=== PATIENT | female | born 1930 | race Caucasian/White ===

== ENCOUNTER 2016-12-01 23:56 | Inpatient (IN) | payer MEDICAID ==
[~2016-12-01] VITALS: Ht 160 cm; Wt 69.6 kg
[2016-12-02] VITALS (14 sets, daily range): BP systolic 113–144; BP diastolic 50–77; Ht 160 cm; Wt 69.6 kg
[2016-12-02 02:23] LABS: BASOPHILS 0 % (0.0-2.0); EOSINOPHILS 0.2 % (0-7); HEMATOCRIT 32.8 % (36.0-48.0); HEMOGLOBIN 10.2 g/dL (12-16); IMMATURE GRANULOCYTES 0.2 % (0-5); LYMPHOCYTES 8.8 % (15-50); MCH 29.7 pg (26.0-34.0); MCHC 31.1 g/dL (31.0-37.0); MCV 95.3 fL (80.0-100.0); MEAN PLATELET VOLUME 9.1 fL (7.4-10.4); MONOCYTES 5.7 % (2-11); NEUTROPHILS 85.1 % (40-80); PLATELET COUNT 212 10x3/uL (130-400); RBC 3.44 10x6/uL (4.00-5.40); RDW 13.5 % (11.5-14.5); WBC 6.5 10x3/uL (4.8-10.8)
[2016-12-02 02:26] LABS: INR 1.16 (0.85-1.17); PROTIME 14.6 SECONDS (11.6-15.0)
[2016-12-02 02:30] LABS: ANION GAP 10.2 mmol/L (8-16); BILIRUBIN - TOTAL 0.33 mg/dL (0.2-1.3); CALCIUM 8.5 mg/dL (8.5-10.1); CARBON DIOXIDE 31.2 mmol/L (21.0-32.0); POTASSIUM - SERUM 3.4 mmol/L (3.5-5.1); PROTEIN - SERUM 6.3 g/dL (6.4-8.2)
[2016-12-02 02:42] LABS: MAGNESIUM - SERUM 1.8 mg/dL (1.8-2.4); TROPONIN-I 0.023 ng/mL (0.000-0.060)
[2016-12-02 04:49] LABS: APPEARANCE CLEAR (CLEAR); BILIRUBIN NEGATIVE (NEGATIVE); COLOR YELLOW (YELLOW); GLUCOSE NEGATIVE (NEGATIVE); KETONE NEGATIVE (NEGATIVE); LEUKOCYTE ESTERASE NEGATIVE (NEGATIVE); NITRITE NEGATIVE (NEGATIVE); PH 5.5 (5.0-6.0); PROTEIN NEGATIVE (NEGATIVE); UROBILINOGEN NORMAL (NORMAL)
--- NOTE | 2016-12-02 05:00 | NUR ---
PATIENT RECEIVED TO ROOM FROM ER VIA STRETCHER WITH FAMILY AND HOSPITAL STAFF. PATIENT IS AWAKE BUT SEDATED FROM PAIN MEDICATION. RR EVEN AND UNLABORED. O2 @ 4L VIA NC. 0 S/S OF DISTRESS. DENIES PAIN AT THIS TIME. IV TO RIGHT AC PATENT WITH NO REDNESS OR SWELLING. INITIATED BUCKS TRACTION 5LBS PER ORDER. NO DIET ORDERED BUT WILL KEEP PATIENT NPO IN CASE OF PROCEDURE. SONS AT BEDSIDE. B/A. SRX2. BED LOW. CALL LIGHT WITHIN REACH.
[2016-12-02] MEDS ORDERED: DUREZOL5 ML RIGHT EYE (08:30)
[2016-12-02] MEDS ORDERED: FLUTICASONE PRO16 GM NASAL (08:31)
[2016-12-02] MEDS ORDERED: NEVANAC3 ML RIGHT EYE (08:31)
[2016-12-02] MEDS ORDERED: SINGULAIR10 MG PO (08:33)
[2016-12-02] MEDS ORDERED: IPRAT-ALBUT 0.5-3 ML UPD (08:33)
[2016-12-02] MEDS ORDERED: PAROXETINE HCL10 MG PO (08:34)
[2016-12-02] MEDS ORDERED: OMEPRAZOLE20 M1 PO (08:34)
[2016-12-02] MEDS ORDERED: PROPAFENONE HC150 MG PO (08:35)
[2016-12-02] MEDS ORDERED: SYMBICORT 16010.2 GM INH (08:35)
[2016-12-02] MEDS ORDERED: PROVENTIL/2.5 MG/3 M INH (08:35)
[2016-12-02] MEDS ORDERED: HYDROCODON-ACE1 EAC7 PO (08:36)
[2016-12-02] MEDS ORDERED: ATIVAN0.5 MG PO (08:37)
[2016-12-02] MEDS ORDERED: IBUPROFEN400 MG PO (08:37)
[2016-12-02] MEDS ORDERED: MILK OF MAGNESI30 ML PO (08:38)
[2016-12-02] MEDS ORDERED: GAS-X80 MG PO (08:38)
[2016-12-02] MEDS ORDERED: SALONPAS (08:39)
[2016-12-02] MEDS ORDERED: [UNRECOGNIZED DRUG - CODE] PO (08:40)
--- NOTE | 2016-12-02 09:04 | NUR ---
WRAPPED PATIENTS IV, SHE WAS PULLING AT THE TUBING.
--- NOTE | 2016-12-02 10:00 | NUR ---
PRE OPERATIVE MEDICATIONS GIVEN AT THIS TIME WITH A SMALL SIP OF WATER. FAMILY AT BEDSIDE. PT VOICES PAIN UPON MOVEMENT. CALL LIGHT IN REACH, WILL CONTINUE WITH PLAN OF CARE.
--- NOTE | 2016-12-02 11:00 | NUR ---
OXYGEN INCREASED TO 6L VIA NC. TAKEN TO SURGERY AT THIS TIME. FAMILY WAITING IN PT'S ROOM. WILL MONITOR PT WHEN SHE RETURNS.
--- NOTE | 2016-12-02 13:13 | NUR ---
3021-0443: ANESTHESIA PUTTING IN SPINAL BLOCK. 8981-0395: ALLOWING 3 MIN FOR THE SPINAL BLOCK TO SET UP
--- NOTE | 2016-12-02 13:43 | NUR ---
THE PATIENT HAD A SPINAL FOR HER PROCEEDURE AND COMPLAINED OF BLURRY VISION UPON AWAKENING IN RR. ANESTHESIA NOTIFIED AND IS AT BEDSIDE ASSESING THE PATIENT.
--- NOTE | 2016-12-02 13:44 | NUR ---
ANDESTHESIA ALSO ADVISED THE PATIENTS PRE OP SAT WAS IN THE 80'S
--- NOTE | 2016-12-02 13:50 | NUR ---
DR ARRIOLA NOW HERE SPEAKING WITH THE PATIENT ABOUT HER VISION
--- NOTE | 2016-12-02 14:08 | NUR ---
DR WAGNER ADVISED THE PATIENTS FAMILY HAD REPORTED THAT THE PATIENT RECENTLY HAD EYE SURGERY.
--- NOTE | 2016-12-02 14:20 | NUR ---
BACK TO ROOM 2212 AT THIS TIME FROM RECOVERY. MENTAL STATUS REMAINS THE SAME BEFORE PROCEDURE. ORIENTED TO SELF ONLY. PT C/O BLURRED VISION IN RIGHT EYE, WHICH FAMILY SAYS IS BASELINE FOR PT. OXYGEN ON 6L VIA NC WITH SATURATIONS 95%. VITAL SIGNS WNL. FAMILY AT BEDSIDE. SCD'S ON AND IN WORKING ORDER. INCENTIVE SPIROMETER IN USE WITH HELP OF FAMILY HOLDING APARATUS. ICE PACK TO LEFT HIP WITH DRESSING C/D/I. RANDALL PATENT AND DRAINING TO GRAVITY, BED ALARM ON. CALL LIGHT IN FAMILIES REACH. WILL CONTINUE WITH PLAN OF CARE.
--- NOTE | 2016-12-02 15:30 | NUR ---
SCHEDULED RHYTHMOL ADMINISTERED AT THIS TIME. RANDALL CARE PROVIDED WITH SOAP AND WATER. FAMILY REMAINS AT BEDSIDE. WILL CONTINUE WITH PLAN OF CARE.
--- NOTE | 2016-12-02 17:00 | NUR ---
PT POSITIONED ON RIGHT SIDE AT THIS TIME. FAMILY REMAINS IN ROOM. CALL LIGHT IN REACH, WILL CONTINUE WITH PLAN OF CARE.
[2016-12-03] VITALS (7 sets, daily range): BP systolic 126–160; BP diastolic 70–99
[2016-12-03 06:23] LABS: BASOPHILS 0 % (0.0-2.0); EOSINOPHILS 0.8 % (0-7); HEMATOCRIT 31.3 % (36.0-48.0); HEMOGLOBIN 9.7 g/dL (12-16); IMMATURE GRANULOCYTES 0.2 % (0-5); LYMPHOCYTES 8.2 % (15-50); MCH 29.8 pg (26.0-34.0); MEAN PLATELET VOLUME 9.3 fL (7.4-10.4); MONOCYTES 9.6 % (2-11); NEUTROPHILS 81.2 % (40-80); PLATELET COUNT 180 10x3/uL (130-400); RBC 3.26 10x6/uL (4.00-5.40); RDW 13.5 % (11.5-14.5)
[2016-12-03 06:43] LABS: ALBUMIN 2.5 g/dL (3.4-5.0); BILIRUBIN - TOTAL 0.68 mg/dL (0.2-1.3); CALCIUM 8.2 mg/dL (8.5-10.1); CARBON DIOXIDE 33.2 mmol/L (21.0-32.0); MAGNESIUM - SERUM 1.5 mg/dL (1.8-2.4); PHOSPHOROUS 1.8 mg/dL (2.5-4.9); PROTEIN - SERUM 6.1 g/dL (6.4-8.2)
[2016-12-03 06:47] LABS: ANION GAP 6.7 mmol/L (8-16); POTASSIUM - SERUM 2.9 mmol/L (3.5-5.1)
--- NOTE | 2016-12-03 12:30 | NUR ---
PATIENT IN BED WITH EYES CLOSED RESTING QUIETLY AT THIS TIME. FAMILY AT BEDSIDE. NO COMPLAINTS OR SIGNS OF DISTRESS. CALL LIGHT WITHIN REACH.
--- NOTE | 2016-12-03 20:00 | NUR ---
RECEIVED PT SLEEPING. NO SIGNS OF DISTRESS. FAMILY AT BEDSIDE. DRESSING TO LEFT HIP CLEAN, DRY, INTACT. TELEMETRY ON. FAMILY DENIES NEEDS AT THIS TIME.
--- NOTE | 2016-12-03 22:39 | NUR ---
NIGHT MEDS PASSED. PT SLEEPY. PT NOT TAKING SIPS OF WATER OUT OF STRAW WELL AT THIS TIME. MEDS GIVEN WITH APPLESAUCE.
--- NOTE | 2016-12-03 23:17 | NUR ---
TIMBER TREATING TANK OPERATOR CALLED. PT HEART RATE IN 170S. WITHIN 5 MINUTES, IT WAS DOWN TO 124. THEN, BACK TO 170S. DR. MORA PAGED.
--- NOTE | 2016-12-04 00:06 | NUR ---
ADMINISTERED CARDIZEM 10MG IVP SLOWLY OVER 2 MINS ORDERED. PUSHED VIA L.FA PIV DRSG CDI AND SWAB CAPS IN USE. PT WEARING TELEMETRY AND MONITER TECH AWARE OF ADMINISTERED DRUG. FAMILY AT BEDSIDE, NO FURTHER NEEDS. WILL CTM.
--- NOTE | 2016-12-04 01:28 | NUR ---
PT SLEEPING. NO SIGNS OF DISTRESS. FAMILY AT BEDSIDE. HEART RATE 86 SINUS.
--- NOTE | 2016-12-04 03:20 | NUR ---
PT RESTING. FAMILY AT BEDSIDE. HEART RATE IN 120S PER TELEMETRY. WILL MONITOR.
--- NOTE | 2016-12-04 03:55 | NUR ---
HEART RATE BACK IN 170S FOR BRIEF TIME, THEN BACK TO 120S. NURSE FROM [facility] CAME TO ASSESS PT. PT IS ASYMPTOMATIC, SLEEPING. CALLED LAB TO COME DRAW MORNING LAB EARLY TO CHECK ELECTROLYTES. WILL MONITOR.
[2016-12-04 04:00] VITALS: BP 160/90
[2016-12-04 04:07] LABS: BASOPHILS 0.1 % (0.0-2.0); EOSINOPHILS 0.6 % (0-7); HEMATOCRIT 31.6 % (36.0-48.0); IMMATURE GRANULOCYTES 0.3 % (0-5); LYMPHOCYTES 7.6 % (15-50); MCH 29.9 pg (26.0-34.0); MCHC 31.6 g/dL (31.0-37.0); MCV 94.3 fL (80.0-100.0); MEAN PLATELET VOLUME 9.5 fL (7.4-10.4); MONOCYTES 7.8 % (2-11); NEUTROPHILS 83.6 % (40-80); PLATELET COUNT 163 10x3/uL (130-400); RBC 3.35 10x6/uL (4.00-5.40); RDW 13.3 % (11.5-14.5)
[2016-12-04 04:10] LABS: WBC 6.7 10x3/uL (4.8-10.8)
[2016-12-04 04:22] LABS: ANION GAP 10.4 mmol/L (8-16); CALCIUM 7.8 mg/dL (8.5-10.1); CARBON DIOXIDE 28.8 mmol/L (21.0-32.0); CREATININE - SERUM 0.8 mg/dL (0.6-1.3); MAGNESIUM - SERUM 1.8 mg/dL (1.8-2.4); PHOSPHOROUS 1.9 mg/dL (2.5-4.9); POTASSIUM - SERUM 3.2 mmol/L (3.5-5.1)
--- NOTE | 2016-12-04 06:43 | NUR ---
PAGED DR MORA AGAIN ABOUT CONSTANT HEART RATE INCREASING. DR MORA ORDERED HER TO TRANSFER TO [facility] AND BE STARTING ON A CARDIZEM DRIP.
[2016-12-04 08:07] VITALS: BP 177/96
--- NOTE | 2016-12-04 09:55 | NUR ---
UP TO CHAIR WITH PT ASSIST.
[2016-12-04 12:19] VITALS: BP 144/83
[2016-12-04 16:33] VITALS: BP 107/57
[2016-12-04 19:00] VITALS: BP 124/49
--- NOTE | 2016-12-04 19:29 | NUR ---
RESUMED CARE OF PT, LYING IN BED RESPIRAITONS EVEN AND UNLABORED ON 2LPM VIA NC. RIGHT FOREARM INFUSING 1/2 NS @ 75 AND CARDIZEM @ 10. [address] WITH PACS ON TELEMETRY. FAMILY AT BEDSIDE, MORPHINE 2MG IVP FOR INCISIONAL PAIN. RANDALL TO GRAVITY. CALL LIGHT IN REACH. WILL CONTINUE TO MONITOR. SEE NURSE RAFAEL.T
[2016-12-04 20:00] VITALS: BP 124/49
[2016-12-05] VITALS: BP 124/63
--- NOTE | 2016-12-05 02:36 | NUR ---
LYING IN BED WITH EYES CLOSED, CALL LIGHT IN REACH. WILL CONTINUE WITH PLAN OF CARE.
[2016-12-05 04:00] VITALS: BP 123/69
[2016-12-05 05:59] LABS: BASOPHILS 0.2 % (0.0-2.0); HEMATOCRIT 27.3 % (36.0-48.0); HEMOGLOBIN 8.7 g/dL (12-16); IMMATURE GRANULOCYTES 0.2 % (0-5); LYMPHOCYTES 10.4 % (15-50); MCH 29.9 pg (26.0-34.0); MCHC 31.9 g/dL (31.0-37.0); MCV 93.8 fL (80.0-100.0); MEAN PLATELET VOLUME 9.7 fL (7.4-10.4); MONOCYTES 9.9 % (2-11); NEUTROPHILS 78.3 % (40-80); PLATELET COUNT 171 10x3/uL (130-400); RBC 2.91 10x6/uL (4.00-5.40); RDW 13.5 % (11.5-14.5); WBC 6.1 10x3/uL (4.8-10.8)
[2016-12-05 06:13] LABS: CALCIUM 7.7 mg/dL (8.5-10.1); CARBON DIOXIDE 29.6 mmol/L (21.0-32.0); CREATININE - SERUM 0.8 mg/dL (0.6-1.3); MAGNESIUM - SERUM 1.8 mg/dL (1.8-2.4); PHOSPHOROUS 1.6 mg/dL (2.5-4.9); POTASSIUM - SERUM 3.6 mmol/L (3.5-5.1)
--- NOTE | 2016-12-05 07:06 | NUR ---
NO CHANGES FROM PREVIOUS ASSESSMENT, CALL LIGHT IN REACH.
[2016-12-05 08:00] VITALS: BP 138/67
[2016-12-05 09:05] VITALS: BP 124/65
--- NOTE | 2016-12-05 10:24 | NUR ---
1 UNIT PRBC STARTED. VS WNL. LINE IS PATENT.
[2016-12-05 11:59] VITALS: BP 127/60
--- NOTE | 2016-12-05 12:52 | NUR ---
Blood transfusion completed without adverse reactions noted.
[2016-12-05 15:46] VITALS: BP 140/65
--- NOTE | 2016-12-05 19:03 | NUR ---
SITTING UP IN BED, EYES CLOSED, RESP SHALLOW, IV PATENT TO LEFT FOREARM AND RIGHT FOREARM, RANDALL DRAINING TO GRAVITY, O2@2LNC, LEFT HIP DRESSING INTACT, SEVERAL FAMILY MEMBERS AT BEDSIDE, NO DISTRESS NOTED
[2016-12-06] VITALS: BP 150/72
--- NOTE | 2016-12-06 02:14 | NUR ---
PT LAYING IN BED C/O "HARD TO BREATH" SPO2 89 RESPITORY CALLED AND PRN BREATHING TREATMENT ADMIN ORDERED. PT RUNNING UCAFIB WITH PVC ON MONITOR AT THIS TIME FAMILY IN ROOM AT BED SIDE WILL MONITOR
[2016-12-06 04:00] VITALS: BP 151/76
--- NOTE | 2016-12-06 05:40 | NUR ---
RESTING QUIETLY IN BED, FAMILY AT BEDSIDE, NO DISTRESS NOTED
[2016-12-06 07:21] LABS: BASOPHILS 0.2 % (0.0-2.0); EOSINOPHILS 0.8 % (0-7); IMMATURE GRANULOCYTES 0.2 % (0-5); LYMPHOCYTES 8.5 % (15-50); MCH 30.1 pg (26.0-34.0); MCHC 32.6 g/dL (31.0-37.0); MCV 92.1 fL (80.0-100.0); MEAN PLATELET VOLUME 9.4 fL (7.4-10.4); MONOCYTES 10.3 % (2-11); PLATELET COUNT 183 10x3/uL (130-400); WBC 5.3 10x3/uL (4.8-10.8)
[2016-12-06 07:25] LABS: HEMOGLOBIN 11.1 g/dL (12-16); RBC 3.69 10x6/uL (4.00-5.40)
[2016-12-06 07:43] LABS: CALC OSMOLALITY 279 mosm/kg (275-300); CALCIUM 8.2 mg/dL (8.5-10.1); CARBON DIOXIDE 29.1 mmol/L (21.0-32.0); CHLORIDE - SERUM 104 mmol/L (98-107); CREATININE - SERUM 0.7 mg/dL (0.6-1.3); GLUCOSE 124 mg/dL (74-106); MAGNESIUM - SERUM 1.7 mg/dL (1.8-2.4); PHOSPHOROUS 1.6 mg/dL (2.5-4.9); POTASSIUM - SERUM 3.3 mmol/L (3.5-5.1); SODIUM 141 mmol/L (136-145); eGFR NON AFRICAN AMERICAN 83 mL/min (90-120)
[2016-12-06 07:44] LABS: UREA NITROGEN 7 mg/dL (7-18)
[2016-12-06 08:00] VITALS: BP 144/77
--- NOTE | 2016-12-06 09:37 | NUR ---
TELEMETRY ST. RESP UL ON 02 2L NC. IV PATENT. TONIA INTACT. WILL CONT. PLAN OF CARE.
[2016-12-06 12:00] VITALS: BP 133/80
--- NOTE | 2016-12-06 13:18 | NUR ---
Nutrition follow-up: Diet: Regular with po intake < 25% of meals Labs reviewed Wt: 118# PO intake continues to be poor at this time RDN will order Ensure with breakfast; will order Mighty Shake with lunch and Magic cup with dinner to increase kcal/protein intake. RDN following.
[2016-12-06 16:00] VITALS: BP 150/80
--- NOTE | 2016-12-06 16:40 | NUR ---
TELEMETRY UCAF HR 154. WILL CONT. TO MONITOR.
[2016-12-06 19:00] VITALS: BP 162/79
--- NOTE | 2016-12-06 19:03 | NUR ---
SITTING UP IN BED, AWAKE AND ALERT, CONFUSED TO PERSON, TIME, AND PLACE, RESP UNLABORED, IV PATENT TO LEFT FOREARM, RANDALL DRAINING TO GRAVITY, LEFT HIP DRESSING DRY AND INTACT, FAMILY AT BEDSIDE
[2016-12-07] VITALS: BP 158/70
[2016-12-07 04:00] VITALS: BP 149/72
--- NOTE | 2016-12-07 06:07 | NUR ---
RESTING QUIETLY IN BED, NO DISTRESS NOTED
[2016-12-07 06:53] LABS: BASOPHILS 0.2 % (0.0-2.0); EOSINOPHILS 1.5 % (0-7); HEMATOCRIT 39.6 % (36.0-48.0); HEMOGLOBIN 12.7 g/dL (12-16); IMMATURE GRANULOCYTES 0.2 % (0-5); LYMPHOCYTES 8.8 % (15-50); MCH 29.3 pg (26.0-34.0); MCHC 32.1 g/dL (31.0-37.0); MCV 91.5 fL (80.0-100.0); MEAN PLATELET VOLUME 9.4 fL (7.4-10.4); MONOCYTES 11.9 % (2-11); NEUTROPHILS 77.4 % (40-80); RBC 4.33 10x6/uL (4.00-5.40); RDW 14.5 % (11.5-14.5); WBC 4.5 10x3/uL (4.8-10.8)
[2016-12-07 06:58] LABS: PLATELET COUNT 235 10x3/uL (130-400)
[2016-12-07 06:59] LABS: CALC OSMOLALITY 277 mosm/kg (275-300); CALCIUM 7.9 mg/dL (8.5-10.1); CARBON DIOXIDE 32.1 mmol/L (21.0-32.0); CHLORIDE - SERUM 100 mmol/L (98-107); CREATININE - SERUM 0.7 mg/dL (0.6-1.3); GLUCOSE 131 mg/dL (74-106); MAGNESIUM - SERUM 1.6 mg/dL (1.8-2.4); PHOSPHOROUS 1.6 mg/dL (2.5-4.9); SODIUM 139 mmol/L (136-145); UREA NITROGEN 8 mg/dL (7-18); eGFR NON AFRICAN AMERICAN 83 mL/min (90-120)
[2016-12-07 07:30] LABS: POTASSIUM - SERUM 2.4 mmol/L (3.5-5.1)
[2016-12-07 08:24] VITALS: BP 164/50
--- NOTE | 2016-12-07 09:42 | NUR ---
TELEMETRY UCAF. IV PATENT. TONIA INTACT. FAMLY AT BS. WILL CONT. PLAN OF CARE.
--- NOTE | 2016-12-07 10:09 | NUR ---
CONVERTED TO SR WITH PACS. WILL MONITOR.
--- NOTE | 2016-12-07 12:25 | NUR ---
UP IN CHAIR WITH PT ASSIST.
[2016-12-07 13:17] VITALS: BP 124/67
--- NOTE | 2016-12-07 13:59 | NUR ---
DRSG CHANGED TO LEFT HIP.
--- NOTE | 2016-12-07 16:21 | NUR ---
WOUND CARE: NOTED 2 BLISTERS ON LEFT INNER KNEE. COVERED WITH MEPILEX LITE DRESSING TO PROTECT. PLACED PILLOW BETWEEN KNEES. ALSO NOTED A DEEP TISSUE INJURY TO LEFT COCCYX. MEASURES 2CM X 2CM. PURPLE WITH NON-BLANCHABLE REDNESS SURROUNDING. COVERED WITH MEPILEX SACRAL DRESSING TO PROTECT. EDUCATED PT AND FAMILY ON IMPORTANCE OF TURNING / REPOSITIONING OFF THE AREA. ALL VOICED UNDERSTANDING.
[2016-12-07 16:27] VITALS: BP 151/81
--- NOTE | 2016-12-07 19:03 | NUR ---
LAYING IN BED, AWAKE AND ALERT, CONFUSED TO PLACE, TIME AND SITUATION, IV PATENT TO RIGHT FOREARM, O2@2LNC, RANDALL DRAINING TO GRAVITY, DRESSING INTACT TO LEFT HIP AND RIGHT KNEE, FAMILY AT BEDSIDE
[2016-12-07 19:20] LABS: PHOSPHOROUS 3.2 mg/dL (2.5-4.9); POTASSIUM - SERUM 3.6 mmol/L (3.5-5.1)
[2016-12-07 20:00] VITALS: BP 127/76
[2016-12-08] VITALS: BP 128/67
[2016-12-08 04:00] VITALS: BP 128/64
--- NOTE | 2016-12-08 04:27 | NUR ---
RAILROAD CROSSING PROTECTION MAINTAINER AT BEDSIDE TO OBTAIN VITALS, CALL LIGHT IN REACH. WILL CONTINUE WITH PLAN OF CARE.
--- NOTE | 2016-12-08 07:15 | NUR ---
RESTING QUIETLY NAD NOTED
--- NOTE | 2016-12-08 07:30 | NUR ---
ASSESSMENT COMPLETED. DENIES ANY NEEDS. RIGHT FOREARM IV WITH MILTI VIT AT 75 AND CARDIZEM AT 10. RANDALL CATH TO BEDSIDE GRAVITY BAG. TELEMERTY SHOWS SR WITH PACS. PT HAS A BLISTER TO RIGHT KNEE AND A DRSG TO LEFT BUTTOCK. SURGERY SITE TO LEFT HOP WITH ULI. CALL LIGHT IN REACH WITH SR UP
[2016-12-08 08:07] VITALS: BP 136/65
--- NOTE | 2016-12-08 09:40 | NUR ---
Patient Name: RAJ GOYAL Admission Status: ER Accout number: [id number] Admission Date: 12-02-2016 : 1928 Admission Diagnosis: Attending: GUS Current LOS: 6 Anticipated DC Date: Planned Disposition: Primary Insurance: MEDICAID [place] Discharge Planning Comments: CM met with patient and patient's daughter at bedside to discuss discharge planning/needs. The patient plans to discharge back to [facility]& ([phone]). CM spoke with "Uriel" at [facility] states patient's room is currently being held for her and [facility] will provide all DME needed as well as Physical Therapy. The patient's daughter "Mariaa" [facility] facility will transport patient at discharge. If not, patient's daughter "Naomi Davidson" ([phone]) will transport patient. The patient's daughter states [facility] provides a safe environment for the patient. CM will continue to follow and assist with discharge planning/needs as needed. Passport Support Manager: Rita Levy RN/CM No. Question Answer Score * Is the patient Alert and Oriented? No 0 * How many steps to enter\\exit or inside your home? 0 0 * PCP DR. LAZCANO 0 * Pharmacy [facility] 0 * Preadmission Environment Correction Facility 0 * Facility Name [facility] 0 * ADLs Total Dependent 0 * Equipment Rolling Walker Shower Chair Walker Wheelchair 0 * List name and contact numbers for known caregivers / representatives who currently or will assist patient after discharge: NAOMI DAVIDSON (daughter) [phone] 0 * Community resources currently utilized None 0 * Additional services required to return to the preadmission environment? No 0 * Can the patient safely return to the preadmission environment? Yes 0 * Has this patient been hospitalized within the prior 30 days at any hospital
--- NOTE | 2016-12-08 10:45 | NUR ---
Nutrition follow-up: Diet: REgular as tolerated Nutritional supplements ordered with meals PO intake still ~25% of meals +BM Wt: 188# Pt may benefit from an appetite stimulant due to continued poor po intake RDN following.
[2016-12-08 11:36] VITALS: BP 125/69
--- NOTE | 2016-12-08 15:24 | NUR ---
REPOSITIONED FOR COMFORT. FAMILY AT BEDSIDE. TELEMERTY SHOWS SR. NO NEEDS VOICED. WILL MONITORED
[2016-12-08 15:54] VITALS: BP 109/52
--- NOTE | 2016-12-08 16:21 | NUR ---
1ST STEP OVERLAY ORDERED. WE WENT TO PUT IT ON BED AND FAMILY REQUESTED THAT WE WAIT UNTIL AM WHEN PT WAS HERE TO TRANSFER HER TO A CHAIR. CELINA WOUND CARE NURSE NOTIFIED.
[2016-12-08 20:00] VITALS: BP 123/63
--- NOTE | 2016-12-08 21:26 | NUR ---
HS MEDS GIVEN, PT ASKING FOR ANTONELLA MEDICATION, CALL OUT TO DR LAZCANO.
--- NOTE | 2016-12-08 21:47 | NUR ---
NORCO 1 TAB GIVEN FOR C/O PAIN TO RIGHT HIP.
[2016-12-09] VITALS: BP 116/60
--- NOTE | 2016-12-09 03:13 | NUR ---
RESTING WITH EYES CLOSED, RESPERATIONS EVEN, NO S/S DISTRESS NOTED.
[2016-12-09 04:00] VITALS: BP 125/75
--- NOTE | 2016-12-09 04:03 | NUR ---
AIR LAUNCH WEAPONS TECHNICIAN AT BEDSIDE TO OBTAIN VITALS, CALL LIGHT IN REACH. WILL CONTINUE TO MONITOR.
--- NOTE | 2016-12-09 06:18 | NUR ---
MIXER OPERATOR HOT METAL AT BED SIDE, BATH AND LINEN CHANGE COMPLETE. REPOSITIONED IN BED FOR COMFORT.
[2016-12-09 06:23] LABS: BASOPHILS 0.2 % (0.0-2.0); EOSINOPHILS 6.2 % (0-7); HEMATOCRIT 31.9 % (36.0-48.0); HEMOGLOBIN 9.8 g/dL (12-16); IMMATURE GRANULOCYTES 0.4 % (0-5); LYMPHOCYTES 16.3 % (15-50); MCH 28.8 pg (26.0-34.0); MCHC 30.7 g/dL (31.0-37.0); MCV 93.8 fL (80.0-100.0); MEAN PLATELET VOLUME 9.5 fL (7.4-10.4); MONOCYTES 11.6 % (2-11); NEUTROPHILS 65.3 % (40-80); PLATELET COUNT 241 10x3/uL (130-400); RDW 14.2 % (11.5-14.5); WBC 4.8 10x3/uL (4.8-10.8)
[2016-12-09 06:52] LABS: ANION GAP 10.3 mmol/L (8-16); CALCIUM 7.8 mg/dL (8.5-10.1); CARBON DIOXIDE 28.8 mmol/L (21.0-32.0); CREATININE - SERUM 0.8 mg/dL (0.6-1.3); MAGNESIUM - SERUM 1.8 mg/dL (1.8-2.4); PHOSPHOROUS 2.9 mg/dL (2.5-4.9); POTASSIUM - SERUM 3.1 mmol/L (3.5-5.1)
--- NOTE | 2016-12-09 07:35 | NUR ---
ASSESSMENT COMPLETED. TELEMERTY SHOWS SR 84, IV TORIGHT FA WITH MULTIVITAMS AT 75. ABAD VALDESRDD. AIR BED APPLIED TO BED. PT UP IN BEDSIDE CHAIR. FAMILY AT BEDSIDE. WILL MONITOR.
[2016-12-09 08:04] VITALS: BP 135/56
--- NOTE | 2016-12-09 08:10 | NUR ---
RESTING QUIETLY NAD NOTED
[2016-12-09 11:48] VITALS: BP 127/75
--- NOTE | 2016-12-09 13:51 | NUR ---
LYING QUIETLY WITH HOB UP. NO NEEDS NOTED. TELEMERTY SHOWS UCAF. ON CARDIZEM DRIP
[2016-12-09 15:46] VITALS: BP 120/71
--- NOTE | 2016-12-09 21:07 | NUR ---
NOTIFIED BY MT THAT PT HAD CONVERTED TO SR, HR OF 97, WILL CONT TO MONITOR.
--- NOTE | 2016-12-09 21:56 | NUR ---
REPOSITIONED IN BED FOR COMFORT, TURNED TO THE RIGHT AND PLACED PILLOWS BEHIND LEFT SIDE, BETWEEN KNEES AND UNDER BILATERAL HEELS. WILL CONT TO MONITOR.
[2016-12-09 22:37] VITALS: BP 148/67
[2016-12-10 01:38] VITALS: BP 116/54
--- NOTE | 2016-12-10 01:47 | NUR ---
PT RESTING SOUNDLY WITHOUT C/O OR DISTRESS NOTED. CALL LIGHT WITHIN REACH. WILL CONT TO MONITOR.
[2016-12-10 05:55] VITALS: BP 120/66
[2016-12-10 07:20] LABS: CHLORIDE - SERUM 106 mmol/L (98-107); CREATININE - SERUM 0.7 mg/dL (0.6-1.3); GLUCOSE 111 mg/dL (74-106); MAGNESIUM - SERUM 1.6 mg/dL (1.8-2.4); PHOSPHOROUS 2.9 mg/dL (2.5-4.9); SODIUM 141 mmol/L (136-145); eGFR NON AFRICAN AMERICAN 83 mL/min (90-120)
[2016-12-10 07:21] LABS: CALC OSMOLALITY 280 mosm/kg (275-300); POTASSIUM - SERUM 3.9 mmol/L (3.5-5.1); UREA NITROGEN 9 mg/dL (7-18)
[2016-12-10] MEDS ORDERED: Rythmol PO (07:41)
[2016-12-10] MEDS ORDERED: XARELTO15 MG PO (07:41)
[2016-12-10] MEDS ORDERED: CARDIZEM CD180 MG PO (07:42)
--- NOTE | 2016-12-10 07:52 | NUR ---
PT SITTING UP IN BED PT DENIES NEEDS WILL CONTINUE TO MONITOR.
[2016-12-10 08:02] VITALS: BP 139/67
--- NOTE | 2016-12-10 09:30 | NUR ---
DR LAZCANO WANTS TO DC PT BACK TO [facility]. PT IS STILL ON TIZAC DRIP. TALKED WITH DR MORA PT IS IN SINUS RHYTHM. HE GAVE OK TO DC DRIP AND SEE IF PT MAINTAINS SR FOR 3 HOURS. WILL CONTINUE TO MONITOR PT. DC DRIP.
[2016-12-10 11:18] VITALS: BP 120/55
--- NOTE | 2016-12-10 13:19 | NUR ---
Patient for discharged back to [facility] via ambulance. Primary nurse spoke with staff. TC to [phone]. CM spoke w/ Corazon who states patient will be admitted to a skilled bed at facility.
--- NOTE | 2016-12-10 13:36 | NUR ---
CALLED AMBULANCE THEY SAID IT WOULD BE ABOUT 45 MINS TO AN HOUR BEFORE THEY CAN COME GET HER.
--- NOTE | 2016-12-10 14:24 | NUR ---
WENT OVER DC PAPERWORK WITH PT PT VERBALIZES UNDERSTANDING. GIVEN PT DC INSTRUCTIONS AND DC SCRIPTS IN YELLOW ENVELOPE. DC PIV IN LEFT FA WITH CATHETER TIP INTACT DC PIV IN R FA WITH CATHETER TIP INTACT. DC TELE. WAITING ON AMBULANCE TO ARRIVE. CHANGED COCCYX DRESSING SIGNED AND DATED. CHANGED L HIP DRESSING WITH DESIGNATED SILVER DSNG SIGNED AND DATED. WOUNDS WITH NO S/S INFECTION.
--- NOTE | 2016-12-10 15:46 | NUR ---
AMBULANCE HERE WHEELED OUT PT PER STRETCHER
--- NOTE | 2016-12-15 08:25 | OP ---
PATIENT NAME: RAJ GOYAL V MEDICAL RECORD: [id number] :[birth year] LOCATION:D. D.2123 ADMISSION DATE:12/02/16 SURGEON: VALORIE WAGNER MD DATE OF OPERATION: 12/02/2016 PREOPERATIVE DIAGNOSIS: Left femoral neck fracture. POSTOPERATIVE DIAGNOSIS: Left femoral neck fracture. PROCEDURE PERFORMED: Left hip hemiarthroplasty. SURGEON: Grey Wagner MD ANESTHESIA: Spinal. BLOOD LOSS: About 100 mL. CONDITION: She tolerated the procedure well, was transferred to the recovery room in stable condition at termination of the procedure. INDICATIONS: This is an 86-year-old female resident of [place]. She fell doing transfers. She had a displaced femoral neck fracture. We discussed the options with the family, elected to proceed with a hip hemiarthroplasty. We discussed risks, benefits, and alternatives of this, they understood and wished to proceed. OPERATIVE REPORT: The patient was taken to the operating room, placed in supine position and transferred to the operating table. She was then placed in a lateral position where a spinal anesthesia was obtained. She was then placed lateral with her left hip up. The left hip was confirmed to be the correct site. Following which, she was prepped and draped in normal fashion. She received Ancef per protocol. I then proceeded after the initial prep and drape do a secondary ChloraPrep and Ioban dressing. I then proceeded to make a lateral incision followed by splitting of the IT band and placement of the Charnley retractor. The anterior portion of gluteus medius and capsule was taken off as a unit. A cleanup cut was made on the femoral neck. Following which, the femoral head was removed from the acetabulum where it had been fractured off. This area was copiously irrigated and the femoral head was sized. It was found to be a 46. I then proceeded to take the leg off side of the bed into a bag and following which, the proximal femur was opened with a cookie cutter and canal finder. This was then broached up to a size 12. X-ray was taken. Overall, the alignment looked good as well as the length. With therefore took everything out, copiously irrigated, and placed a size 12 stem, standard neck with 46 head. She was reduced. Copiously irrigated. Two JuggerKnot suture anchors were used to stitch the gluteus medius capsule back to the trochanter. I then closed the IT band with a barbed #2 PDS. I then closed with 2-0 Vicryl, then fish. She was awakened and transferred to the recovery room in stable condition, having tolerated the procedure well. TRANSINT:[id number] Voice Confirmation ID: [id number] DOCUMENT ID: [id number] OPERATIVE REPORT [id number] RAJ GOYAL, VALORIE RICH MD at 0825 CC: [id number] DICTATION DATE: 12/02/16 1334 DISTRIBUTION DISPATCHER: 12/02/16 1433 DIS IN 12/10/16 [id number] [place] [address]
== END 2016-12-10 15:49 | DRG 469 ==
LOC: D.ER 23:56 → D.M2 12-02 03:44 → D.MS 12-02 03:44 → D.M2 12-04 07:36
PROVIDERS: Emergency Medicine; Orthopaedic Surgery Sports Medicine; ADMIT Family Medicine
PROC: 0SRS0JZ Replacement of Left Hip Joint, Femoral Surface with Synthetic Substitute, Open Approach (ICD-10-PCS; principal; 2016-12-02 11:45)
DX: S72.012A Unspecified intracapsular fracture of left femur, initial encounter for closed fracture (principal); G93.41 Metabolic encephalopathy; M97.02XA Periprosthetic fracture around internal prosthetic left hip joint, initial encounter; I47.2 Ventricular tachycardia; D62 Acute posthemorrhagic anemia; W17.89XA Other fall from one level to another, initial encounter; Z91.81 History of falling; I69.319 Unspecified symptoms and signs involving cognitive functions following cerebral infarction; I69.398 Other sequelae of cerebral infarction; R26.81 Unsteadiness on feet; I48.91 Unspecified atrial fibrillation; J44.9 Chronic obstructive pulmonary disease, unspecified; M81.0 Age-related osteoporosis without current pathological fracture; I25.10 Atherosclerotic heart disease of native coronary artery without angina pectoris; K21.9 Gastro-esophageal reflux disease without esophagitis; E87.6 Hypokalemia